=== PATIENT | female | born 1990 | race Caucasian/White ===

== ENCOUNTER 2022-11-29 12:24 | Outpatient (OUT) | payer BC, SELFPAY ==
--- NOTE | 2022-11-29 12:53 | ECG_ITS ---
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
--- NOTE | 2022-11-29 13:20 | PM.PRESUREVA ---
History of Present Illness History of Present Illness Chief complaint: endometrial hyperplasia Narrative: Patient presents for preadmission testing. The patient reports she's had heavy vaginal bleeding since August of this year. She denies abdominal pain, nausea, vomiting, or any other complaints. She recently started Megace to help with the bleeding, and approximately one month ago she started labetalol for migraines and blood pressure management. She states she didn't realize that she needed to take the labetalol twice a day, so she started the correct dose this week. Review of Systems ROS Narrative REVIEW OF SYSTEMS: Negative except as stated in HPI, ten or more systems reviewed. Constitutional: No fever , chills, weakness ENT: No sore throat or epistaxis Cardiovascular: No edema, chest pain, palpitations, or activity intolerance Respiratory: No shortness of breath, cough, or wheezing Musculoskeletal: No joint pain or swelling Gastrointestinal: No abdominal pain, constipation, diarrhea, or vomiting Genitourinary: No dysuria or hematuria Neurological: No numbness, tingling, weakness, or headache Psychiatric: No mood changes PFSH PFSH Medical History (Updated 11/29/22 @ 12:52 by Monica Redman NP) Surgical History (Updated 11/29/22 @ 12:52 by Monica Redman NP) Family History (Updated 11/29/22 @ 12:52 by Monica Redman NP) Other Family history of diabetes mellitus Family history of heart disease Family history of hypertension Social History (Updated 11/29/22 @ 12:48 by Monica Redman NP) Within the past year, how often did you have a drink containing alcohol: monthly or less Non-prescribed substance use: denies use 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 Highest level of school completed/degree received: Associate degree: occupational, technical, vocational program Meds Home Medications and Allergies Home Medications Medication Instructions Recorded Confirmed Type bupropion HCl 150 mg 24 hr tablet, 150 mg PO DAILY 11/29/22 11/29/22 History extended release (Wellbutrin XL) ferrous sulfate 325 mg (65 mg 325 mg PO DAILY 11/29/22 11/29/22 History iron) tablet (Feosol) labetalol 100 mg tablet 100 mg PO BID 11/29/22 11/29/22 History megestrol 20 mg tablet 20 mg PO BID 11/29/22 11/29/22 History metformin 500 mg tablet 500 mg PO .4 times a day 11/29/22 11/29/22 History multivitamin (Daily Multi-Vitamin 1 tab PO DAILY 11/29/22 11/29/22 History tablet) naproxen 500 mg tablet (Naprosyn) 500 mg PO Q12H 11/29/22 11/29/22 History sumatriptan succinate 100 mg See Rx Instructions PO .COMPLEX 11/29/22 11/29/22 History tablet (Imitrex) tizanidine 4 mg capsule 4 mg PO TID PRN muscle spasticity 11/29/22 11/29/22 History Allergies Allergy/AdvReac Type Severity Reaction Status Date / Time No Known Drug Allergies Allergy Verified 11/29/22 12:41 Exam Narrative Exam Narrative: Constitutional: Awake, alert, comfortable, well-appearing, nontoxic, interactive, vital signs as charted Head: Normocephalic, atraumatic Neck: Supple, normal appearance, normal range of motion, no meningeal signs, no lymphadenopathy Respiratory: No respiratory distress, breath sounds clear Cardiovascular: Regular rate and rhythm, strong and regular heart tones Abdomen: Nontender, normal bowel sounds, soft, no CVA tenderness Musculoskeletal: Normal gait, no swelling or edema Skin: No rashes or induration, no lesions, only visible skin inspected Neuro: No neurological deficits, normal sensation Psychiatric: Oriented ?3, normal affect Assessment and Plan Assessment and Plan (1) Endometrial hyperplasia: (2) Menorrhagia: Plan D&C hysteroscopy, possible Myosure scheduled with Dr. Avelar 12/03/2022.
== END 2022-11-29 12:25 | disposition home or self-care (01) ==
PROVIDERS: PCP Family Medicine; Visit Provider Obstetrics & Gynecology
DX: Z01.812 Encounter for preprocedural laboratory examination (principal); Z01.810 Encounter for preprocedural cardiovascular examination; N85.00 Endometrial hyperplasia, unspecified; N92.0 Excessive and frequent menstruation with regular cycle; R94.31 Abnormal electrocardiogram [ECG] [EKG]
CPT/HCPCS: 93005; G0463

== ENCOUNTER 2022-12-03 08:50 | Day surgery (SDC) | payer BC, SELFPAY ==
[2022-11-29 12:48] VITALS: BP 150/97; PULSE 86; RESP 20; TEMP 36.6; O2SAT 98; BMI 42.0
[2022-12-03] VITALS (8 sets, daily range): BP systolic 122–155; BP diastolic 64–101; PULSE 68–102; RESP 14–22; TEMP 36.2–36.6; O2SAT 94–99
[2022-12-03 08:59] LABS: Basophils Percent Auto 0.4 % (0.2-2.0); Eosinophils Absolute Auto 0.1 10^3/uL (0.0-0.7); Eosinophils Percent Auto 0.7 % (0.9-7.0); Hematocrit 30.9 % (36.0-48.0); Hemoglobin 9.2 g/dL (12.0-16.0); Immature Granulocytes Abs Auto 0.02 10^3/uL (0.00-0.03); Immature Granulocytes Pct Auto 0.3 % (0.0-0.5); Lymphocytes Percent Auto 27.9 % (20.5-60.0); Mean Corpuscular HGB Conc 29.8 g/dL (29.9-35.2); Mean Corpuscular Hemoglobin 22.2 pg (26.7-34.0); Mean Corpuscular Volume 74.5 fL (81.0-99.0); Mean Platelet Volume 8.5 fL (9.5-13.5); Monocytes Absolute Auto 0.5 10^3/uL (0.3-0.8); Monocytes Percent Auto 6.6 % (1.7-12.0); Neutrophils Absolute Auto 4.6 10^3/uL (1.4-6.5); Neutrophils Percent Auto 64.1 % (43.0-75.0); Platelet Count 399 10^3/uL (150-450); Red Blood Count 4.15 10^6/uL (4.20-5.40); Red Cell Distribution Width 17.8 % (11.0-15.0); White Blood Count 7.1 10^3/uL (4.0-11.0)
[2022-12-03 09:18] LABS: HCG Quantitative <1 mIU/mL
[2022-12-03 09:18] LABS: Glucometer 112 mg/dL (74-106)
[2022-12-03] MEDS: LACTATED RINGER'S SOLUTION 1,000 ML 50 ML IV (09:34)
--- NOTE | 2022-12-03 12:48 | PC.NURSE ---
peripad noted to have scant amount bleeding; no clots
--- NOTE | 2022-12-03 12:49 | PM.ONB ---
Brief Operative Note Date of procedure: 12/03/22 Pre-op diagnosis: menorrhagia, acute blood loss anemia Post-op diagnosis: same Procedure: PROCEDURE: The patient was taken back to the Operating Room where she was prepped and draped in normal sterile fashion after being placed under general anesthesia without difficulty. She was also placed in the dorsal lithotomy position. A weighted speculum was placed in the patient's vagina. The anterior lip of the cervix was identified and grasped with a single tooth tenaculum. The patient's uterus was then sounded roughly to [ 9 ] cm. The patient was then gently dilated using Hegar dilators. The hysteroscope was passed through the patient's cervix into the uterus. Both ostia were identified. slightlythickened appearing endometrium. No gross evidence of malignancy. Please note that the MyoSure apparatus was placed through the hysteroscope under direct visualization. The apparatus was engaged and endometrial currettings were removed under direct visualization. The MyoSure was then removed from the scope. The hysteroscope was then removed from the patient's uterus. The endometrial curettings were sent out to pathology. The single tooth tenaculum was then removed from the patient's anterior lip of the cervix where excellent hemostasis was noted. All instruments were removed from the patient's vagina. The patient tolerated the procedure well. Sponge, lap and needle counts were correct times two. The patient was taken to the Recovery Room in stable condition. Anesthesia: STACIEA Surgeon: Fernando Avelar Estimated blood loss (mL): 5 Pathology: other (endometrial currettings) Condition: stable Disposition: PACU
--- NOTE | 2022-12-03 12:52 | PC.NURSE ---
Peripad changed for moderate amount bleeding; no clots noted
--- NOTE | 2022-12-03 12:57 | PC.NURSE ---
peripad noted to have scant bloody drainage
--- NOTE | 2022-12-03 13:01 | PC.NURSE ---
Small amount bleeding noted on peripad; no clots
--- NOTE | 2022-12-03 13:20 | PC.NURSE ---
Up to bathroom; unable to void
--- NOTE | 2022-12-03 13:40 | PC.NURSE ---
Denies urge to void; scant drainage on peripad
== END 2022-12-03 14:00 | disposition home or self-care (01) ==
PROVIDERS: PCP Family Medicine; Visit Provider Obstetrics & Gynecology
PROC: (CPT 58558; principal; 2022-12-03 10:10)
DX: N85.01 Benign endometrial hyperplasia (principal); N92.0 Excessive and frequent menstruation with regular cycle; D62 Acute posthemorrhagic anemia; Z79.84 Long term (current) use of oral hypoglycemic drugs
CPT/HCPCS: 58558; 36415; 82948; 84702; 85025; 88305; J2704